=== PATIENT | female | born 1980 ===

== ENCOUNTER 2018-02-01 02:28 | Day surgery (SDC) | payer BC ==
[~2018-02-01] VITALS: Ht 157.5 cm; Wt 123.4 kg
[~2018-02-01 02:28] MED LIST: FEXO1TAB60 PO; HYDR-4228 PO; LURA40TA3 PO
[2018-02-01] MEDS ORDERED: ROPIVACAINE 0.5% 20 ML VIAL ONE (06:40)
[2018-02-01] MEDS ORDERED: EPINEPHrine HCL 1 MG/ML AMP ONE (06:40)
[2018-02-01] MEDS ORDERED: DEXAMETHASONE SOD PHOS 10MG/ML ONE (06:40)
[2018-02-01] MEDS ORDERED: LIDOCAINE MPF 1% 5 ML VIAL ONE (06:51)
[2018-02-01] MEDS ORDERED: PROPOFOL EMUL(*) 10MG/ML 20 ML 20 ML ONE (06:53)
[2018-02-01] MEDS ORDERED: fentaNYL CITR 250 MCG/5 ML AMP ONE (06:53)
[2018-02-01] MEDS ORDERED: LIDOCAINE 2% IV 100 MG/5ML SYR ONE (06:55)
[2018-02-01] MEDS ORDERED: FAMOTIDINE(*) 20MG/50ML PREMIX 50 ML IVPB ONE (07:05)
[2018-02-01 07:06] VITALS: BP 129/80
[2018-02-01] MEDS ORDERED: DEXAMETHASONE SOD 4 MG/ML VIAL ONE (07:48)
[2018-02-01] MEDS ORDERED: KETAMINE HCL 200 MG/20 ML MDV ONE (07:50)
[2018-02-01] MEDS ORDERED: ONDANSETRON 4 MG/2 ML VIAL ONE ×2 (07:51→09:42)
[2018-02-01] MEDS ORDERED: KETOROLAC 30 MG/ML VIAL ONE (09:18)
[2018-02-01] MEDS ORDERED: [UNRECOGNIZED DRUG - CODE] (09:57)
[2018-02-01 10:10] VITALS: BP 121/81
[2018-02-01 10:58] VITALS: BP 107/68
[2018-02-01 11:11] VITALS: BP 129/81
[2018-02-01 11:15] VITALS: BP 131/73
[2018-02-01] MEDS ORDERED: ROPIVACAINE 0.2% 400 MG/200ML 250 ML CONINFUS ONE (11:35)
[2018-02-01] MEDS ORDERED: LIDOCAINE/SOD BICARB 8.4% SYR ID ONE (11:35)
[2018-02-01] MEDS ORDERED: NORMOSOL R SOLN(*) 1000 ML BAG 1,000 ML IV PRN (11:35)
[2018-02-01] MEDS ORDERED: FAMOTIDINE 20 MG TAB PO ONE (11:35)
[2018-02-01] MEDS ORDERED: ceFAZolin(*) 2GM/D5W 50ML 50 ML IVPB ONE (11:35)
[2018-02-01] MEDS ORDERED: MIDAZOLAM 2 MG/2 ML VIAL IVP PRN (11:35)
--- NOTE | 2018-02-01 12:28 | OPERATIVE REPORT 1 ---
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 POSTOPERATIVE DIAGNOSIS Nonunion, base of second metatarsal. PROCEDURE PERFORMED Open reduction and internal fixation, base of second metatarsal with bone grafting. ESTIMATED BLOOD LOSS Minimal. TOURNIQUET TIME Less than 30 minutes. DESCRIPTION OF PROCEDURE Patient was brought to the operating room and placed in the supine position. A bump was placed under her right hip to realign the right lower extremity. She was prepped and draped in the normal sterile fashion using Prevail. Sterile stockinettes and U-drape were placed on the lower extremity. Stockinette was incised from above knee and held with Coban. Esmarch was then used to exsanguinate the lower extremity and tourniquet turned up to 300 mmHg. An incision was made directly over the dorsal aspect of the base of the second metatarsal. Skin was incised down to the subcutaneous tissue and down to the extensor tendons. The extensor tendons were dissected off. I was able to find the base of the second. There was a lot of scarring but the nonunion was very evident. I was able to put a [place] in it without any difficulty. Once I was able to find it, I took a rongeur. I was able to remove all the scar tissue that was present. At that point, I then used a curette to remove any of the subchondral bone and then I used a 2.0 drill bit to perforate the subchondral bone. I used a two-point reduction clamp to reduce this. Under fluoroscopy, I had a reduce. There is some bone that was missing so on the medial aspect there seems to be a little bit of a gap. At this point, I filled the gap with DBX bone graft and filled throughout the whole nonunion. Once I felt I had in correct position with acceptable alignment, I then placed a screw from proximal to distal, lagging it, using a 2.0 drill bit first and then a 1.3 drill bit. I then placed a 2.0 [place] screw across it without any difficulty, getting good compression. Under fluoroscopy, we had good position of the screw and good position of the fracture site. A 3-0 Monocryl and 4-0 Monocryl in running stitch manner were used in subcuticular. Adaptic 4x4's, big bulky White dressing. The patient went to recovery with no complications. [facility]
== END 2018-02-01 10:08 | disposition home or self-care (01) ==
LOC: OR 02:28
PROVIDERS: ATTEND Orthopaedic Surgery
DX: S92.321K Displaced fracture of second metatarsal bone, right foot, subsequent encounter for fracture with nonunion (principal)
CPT/HCPCS: 28485; 76942; C1713; J0171; J1100; J1885; J2001; J2250; J2405; J2704; J2795; J3010; J3490; J0690